=== PATIENT | female | born 1950 | race African-American/Black ===

== ENCOUNTER 2017-08-09 12:47 | Emergency (ER) | payer OTHER ==
[2017-08-09] MEDS: DIPHTH,PERTUSS(ACELL),TET TOX 0.5 ML DISP.SYRIN. VAX IM (13:31)
[2017-08-09] MEDS: ONDANSETRON ODT 4 MG TAB.RAPDIS. PO ×2 (13:31→17:00)
[2017-08-09] MEDS: oxyCODONE/APAP 5/325 1 TAB TABLET PO ×2 (13:32→17:00)
== END 2017-08-09 18:34 | disposition home or self-care (01) ==
LOC: ER 12:47
DX: S46.912A Strain of unspecified muscle, fascia and tendon at shoulder and upper arm level, left arm, initial encounter (principal); S00.81XA Abrasion of other part of head, initial encounter; R07.81 Pleurodynia; J45.909 Unspecified asthma, uncomplicated; E11.22 Type 2 diabetes mellitus with diabetic chronic kidney disease; M79.7 Fibromyalgia; I50.9 Heart failure, unspecified; Z88.8 Allergy status to other drugs, medicaments and biological substances; W17.89XA Other fall from one level to another, initial encounter; Y93.89 Activity, other specified; Y99.8 Other external cause status; Y92.481 Parking lot as the place of occurrence of the external cause
CPT/HCPCS: 70450; 71101; 72125; 73030; 90471; 90715; 99284-25; Q0162